=== PATIENT | female | born 1965 | race African-American/Black ===

== ENCOUNTER 2020-06-17 12:54 | Emergency (ER) | payer SELFPAY ==
--- NOTE | 2020-06-17 13:35 | RAD ---
Radiograph right third digit 3 views: Date: 06/17/2020 Time: 1:23 PM HISTORY: 54-year-old female status post acute traumatic injury to right middle finger FINDINGS: There is a fracture at the base of the distal tuft, with approximately 3 to 4 mm of distal displaceme nt of distal comminuted fragments. There is soft tissue lucency around the nailbed consistent with soft tissue traumatic injury. No dislocation. IMPRESSION: Acute, traumatic, displaced distal tuft fracture of right third digit, with overlying laceration.
[2020-06-17] MEDS ORDERED: Bupivacaine 0.5% 10 ML VIAL ONE (14:09)
[2020-06-17] MEDS ORDERED: Lidocaine 1% PF 5 ML VIAL ONE (14:09)
[2020-06-17] MEDS ORDERED: CEFAZOLIN 1 GM VIAL ONE (16:06)
[2020-06-17] MEDS ORDERED: Sterile Water 10 ML ONE (16:08)
[2020-06-17] MEDS ORDERED: Bacitracin 1 PK ONE (17:08)
== END 2020-06-17 16:25 | disposition home or self-care (01) ==
LOC: ERS 12:54
DX: S62.632B Displaced fracture of distal phalanx of right middle finger, initial encounter for open fracture (principal); I10 Essential (primary) hypertension; W22.8XXA Striking against or struck by other objects, initial encounter
CPT/HCPCS: 11760; 96372; J0690; J3490